=== PATIENT | male | born 1950 | race Caucasian/White ===

== ENCOUNTER 2016-08-22 11:26 | Day surgery (SDC) | payer OTHER ==
[~2016-08-22 11:26] MED LIST: IOPAMIDOL (ISOVUE-300) 150 ML BTL IV ONE; ceFAZolin 2 GM/DEXTROSE 100 ML IV ONE
[2016-08-22] MEDS ORDERED: LIDOCAINE 1% 5 ML SDV ONE (11:47)
[2016-08-22] MEDS ORDERED: CEFAZOLIN 2 GM/DEXTROSE/100 ML BAG IV ONE (12:16)
[2016-08-22 12:22] LABS: INR 1.98 (0.83-1.16); PROTIME(PATIENT) 22.6 SEC (12.0-15.0)
[2016-08-22] MEDS ORDERED: MIDAZOLAM 2 MG/2 ML VIAL ONE (12:25)
[2016-08-22] MEDS ORDERED: DEXAMETHASONE 4 MG/ML VIAL ONE (12:35)
[2016-08-22] MEDS ORDERED: PROPOFOL 200 MG/20 ML VIAL ONE ×3 (12:35→13:14)
[2016-08-22] MEDS ORDERED: ONDANSETRON 4 MG/2 ML VIAL ONE (12:35)
[2016-08-22] MEDS ORDERED: fentaNYL 250 MCG/5 ML INJ ONE (12:35)
[2016-08-22] MEDS ORDERED: ROCURONIUM 50 MG/5 ML VIAL ONE (12:35)
--- NOTE | 2016-08-22 15:10 | DX ---
Fluoroscopy, Greater Than One Hour Indication: Right ureteroscopy with laser treatment. Fluoroscopy time: 0.1 minutes. Dose: 0.5 mGy. Findings: A single spot fluoroscopic image was obtained showing a ureteral stent on the right side as suming the patient is in the supine position. Impression: Fluoroscopy provided for ureteroscopy and stent placement.
--- NOTE | 2016-08-22 20:47 | GOP ---
[f rep st] OPERATIVE REPORT DATE OF OPERATION: 08/22/2016 SURGEON: Kartik Simental MD PREOPERATIVE DIAGNOSIS: Right ureteral calculus. POSTOPERATIVE DIAGNOSIS: Right ureteral calculus. PROCEDURE PERFORMED: Right ureteroscopy with holmium laser lithotripsy, basket extraction of stones, and insertion of indwelling ureteral stent. FINDINGS: INDICATIONS: The patient is a 66-year-old male with a 7.5 mm right ureterovesical junction stone. B ecause of intermittent pain and failure to progress, options were discussed. He elected to undergo s tone removal. DESCRIPTION OF PROCEDURE: After informed consent and with a general LMA anesthesia, the patient was placed in the lithotomy position with his genitalia sterilely prepped and draped. Cystoscopy was car ried out and a Sensor guidewire was passed into the right renal pelvis under fluoroscopic control. T he semirigid ureteroscope was advanced to the stone located in the distal ureter. A 200 micron holmi um laser fiber at 6.4 dwyer of energy was used to fragment the stone. These fragments were removed w ith a nitinol basket. The scope was then advanced more proximally. Visual and contrast injection in to the ureter yielded no additional stone fragments. The scope was then removed and a 6-Malian Multi -Link ureteral stent positioned. A withdrawal string was left in place. The patient was awakened, transferred to the recovery room in stable condition. There were no intrao perative complications. Fragments were left in his bladder and he will urinate into a screen in PACU . There was essentially no blood loss. /[id number]/MODL
== END 2016-08-22 15:15 | disposition home or self-care (01) ==
LOC: FSGY 11:26
PROVIDERS: ATTEND Urology
DX: N20.1 Calculus of ureter (principal); N28.89 Other specified disorders of kidney and ureter
CPT/HCPCS: 52356; 76001; C1769; C2625; J0690; J1100; J2250; J2405; J2704; J3010; Q9967

== ENCOUNTER → 2016-09-29 | Outpatient (CLI) | payer OTHER ==
--- NOTE | 2016-09-29 09:45 | US ---
Complete Retroperitoneal Ultrasound History: Post ureteral stent removal. Comparison: CT abdomen and pelvis August 04, 2016. Findings: The right kidney measures 12.4 x 6.5 x 6.2 cm and the left kidney measures 10.1 x 5.1 x 5.0 cm. A 2.9 x 2.5 cm simple cyst in the posterior right kidney is not significantly changed. An 8 mm n onobstructing stone is noted in the mid/inferior right kidney. There is no hydronephrosis. Multiple n onobstructing stones seen on CT are poorly visualized on ultrasound. The bladder is normal. Bilateral ureteral jets are present. Prevoid bladder volume is 194 mL. Postv oid bladder volume is 69 mL. Impression: 1. No hydronephrosis. 2. Limited assessment of bilateral nephrolithiasis seen better on recent CT. 3. Simple right renal cyst. 4. Postvoid residual of 69 mL.
== END ==
LOC: CIMAGING 08:06
PROVIDERS: ATTEND Urology
DX: N28.1 Cyst of kidney, acquired (principal); N20.0 Calculus of kidney; Z98.890 Other specified postprocedural states
CPT/HCPCS: 76770-PO

== ENCOUNTER → 2016-11-05 | Outpatient (CLI) | payer OTHER | LOC: BMCIMAGING 15:08 | PROVIDERS: ATTEND Internal Medicine | DX: M47.22 Other spondylosis with radiculopathy, cervical region (principal) ==

== ENCOUNTER → 2016-11-11 | Outpatient (CLI) | payer OTHER | LOC: FIMAGING 07:07 | PROVIDERS: ATTEND Internal Medicine | DX: M50.31 Other cervical disc degeneration, high cervical region (principal); M47.892 Other spondylosis, cervical region; M48.02 Spinal stenosis, cervical region; M46.92 Unspecified inflammatory spondylopathy, cervical region ==

== ENCOUNTER → 2017-03-12 | Outpatient (CLI) | payer OTHER ==
[2017-03-12 11:33] LABS: WBC, SYNOVIAL FLUID 632 /mm3 (0-150)
[2017-03-12 14:16] LABS: CRYSTALS, SYNOVIAL FLUID NONE SEEN (NONE SEEN)
== END ==
LOC: FIMAGING 08:15
PROVIDERS: ATTEND Orthopaedic Surgery
PROC: 0S9C3ZX Drainage of Right Knee Joint, Percutaneous Approach, Diagnostic (ICD-10-PCS; principal; 2017-03-12)

== ENCOUNTER → 2017-08-03 | Outpatient (CLI) | payer OTHER | LOC: CIMAGING 08:57 | PROVIDERS: ATTEND Orthopaedic Surgery | DX: R22.41 Localized swelling, mass and lump, right lower limb (principal); M25.561 Pain in right knee; Z98.890 Other specified postprocedural states ==

== ENCOUNTER 2018-07-16 05:49 | Day surgery (SDC) | payer OTHER ==
[2018-07-16] MEDS ORDERED: ceFAZolin 2 GM/DEXTROSE 100 ML IV ONE (06:06)
[2018-07-16] MEDS ORDERED: LR 1,000 ML IV ONE (06:07)
[2018-07-16] MEDS ORDERED: LIDOCAINE 1% 2 ML INJ ID PRN (06:07)
[2018-07-16] MEDS ORDERED: fentaNYL 100 MCG/2 ML INJ IVP PRN (06:20)
[2018-07-16] MEDS ORDERED: HYDROmorphONE/DILAUDID 2 MG/ML INJ IVP PRN (06:20)
[2018-07-16] MEDS ORDERED: ONDANSETRON 4 MG/2 ML VIAL IVP PRN (06:20)
[2018-07-16] MEDS ORDERED: PROMETHAZINE HCL 25 MG/ML INJ IVP PRN (06:20)
[2018-07-16] MEDS ORDERED: MEPERIDINE 25 MG/0.5 ML AMP IVP PRN (06:20)
[2018-07-16] MEDS ORDERED: NALOXONE HCL 0.4 MG/ML INJ IVP PRN (06:20)
[2018-07-16] MEDS ORDERED: PHENYLEPHRINE HCL 100 MCG/ML SYR IVP PRN (06:20)
[2018-07-16] MEDS ORDERED: METOCLOPRAMIDE 10 MG/2 ML VIAL IVP PRN (06:20)
[2018-07-16] MEDS ORDERED: LIDOCAINE 2% 5 ML SDV ONE (06:33)
[2018-07-16] MEDS ORDERED: DEXAMETHASONE 4 MG/ML VIAL ONE (06:33)
[2018-07-16] MEDS ORDERED: ONDANSETRON 4 MG/2 ML VIAL ONE (06:33)
[2018-07-16] MEDS ORDERED: PROPOFOL 200 MG/20 ML VIAL ONE (06:34)
[2018-07-16] MEDS ORDERED: fentaNYL 250 MCG/5 ML INJ ONE (06:34)
[2018-07-16] MEDS ORDERED: MIDAZOLAM 2 MG/2 ML VIAL IVP ONE (06:37)
[2018-07-16 06:58] LABS: INR 1.78 (0.83-1.16); PROTIME(PATIENT) 20.8 SEC (12.0-15.0)
[2018-07-16] MEDS ORDERED: BUPIVACAINE 0.5% 30 ML SDV ONE (06:58)
--- NOTE | 2018-07-16 07:07 | PDHPUP ---
History & Physical Update H&P update statement: This history and physical update is based on an assessment of the patient which was completed after admission or registration (within 24 hours), but prior to the surgery/procedure. H&P update: H&P reviewed & patient examined, no change in patient's condition since H&P completed
[2018-07-16] MEDS ORDERED: ROPIVACAINE HCL 150 MG/30 ML INJ ONE (07:24)
--- NOTE | 2018-07-16 07:38 | PDANEPAE ---
ANE Past Medical History - Cardiovascular History Hx Hypertension: No Hx Arrhythmias: Yes Hx Chest Pain: No Hx Coronary Artery / Peripheral Vascular Disease: No Hx CHF / Valvular Disease: No Hx Palpitations: No Cardiovascular History Comment: "PVC's" Sacha Valdez (flexo operator). Hx of DVT's, one in each calf after knee surgery and was on a long airplane flight, 2009 - Pulmonary History Hx COPD: No Hx Asthma/Reactive Airway Disease: No Hx Recent Upper Respiratory Infection: No Hx Oxygen in Use at Home: No Hx Sleep Apnea: No Sleep Apnea Screening Result - Last Documented: Negative - Neurologic History Hx Cerebrovascular Accident: No Hx Seizures: No Hx Dementia: No - Endocrine History Hx Diabetes: No - Renal History Hx Renal Disorders: Yes Renal History Comment: kidney stones, stents placed - Liver History Hx Hepatic Disorders: No - Neurological & Psychiatric Hx Hx Neurological and Psychiatric Disorders: No - Cancer History Hx Cancer: No - Congenital Disorder History Hx Congenital Disorders: No - GI History Hx Gastrointestinal Disorders: No - Other Health History Other Health History: wears glasses. early stage macular degeneration. easy brusing r/t warfarin. osteoarthritis - Chronic Pain History Chronic Pain: Yes (right knee) - Surgical History Prior Surgeries: right ureteroscopy w/stent placement, 08/2016. Right quad tendon repair. LEFT KNEECAP RE-ALIGNMENT 2014. RIGHT KNEECAP RE-ALIGNMENT 2014 AND 04/2015. Bilateral TKA's (2008) 10 months apart. R shoulder arthroscopy (03/14/14). L shoulder reconstruction (07/1967). 6 knee scopes in total. hernia repair (2010) ANE Review of Systems Review of Systems: - Exercise capacity METS (RN): 5 METS ANE Patient History - Allergies Allergies/Adverse Reactions: No Known Allergies Allergy (Verified 07/14/18 14:18) - Home Medications Home Medications: Cholecalciferol Vit D3 [Vitamin D3 2000 units] 04/09/15 [Last Taken 07/13/18] Metoprolol Succinate Xr [Toprol Xl 50 mg (*)] 04/09/15 [Last Taken 07/15/18] Multivitamins [Multivitamin (*)] 04/09/15 [Last Taken 07/13/18] Ibuprofen [Motrin (*)] PRN 05/14/15 [Last Taken 07/15/18] Warfarin Sodium [Coumadin 4MG (*)] 05/14/15 [Last Taken 07/13/18 18:00] C/E/Zn/Cu/OM3/DHA/EPA/LUT/ZEAX [Preservision Areds 2 Softgel] 07/14/18 [Last Taken 07/13/18] Calcium Citrate 07/14/18 [Last Taken 07/13/18] Chlorthalidone 07/14/18 [Last Taken 07/13/18] Potassium Citrate 07/14/18 [Last Taken 07/13/18] - NPO status NPO Since - Liquids (Date): 07/15/18 NPO Since - Liquids (Time): 20:00 NPO Since - Solids (Date): 07/15/18 NPO Since - Solids (Time): 20:00 - Smoking Hx Smoking Status: Never smoked - Family Anes Hx Family Hx Anesthesia Complications: none ANE Labs/Vital Signs - Vital Signs Blood Pressure: 113/73 Heart Rate: 71 Respiratory Rate: 16 O2 Sat (%): 93 Height: 190.5 cm Weight: 99.79 kg ANE Physical Exam - Airway Neck exam: FROM Mallampati Score: Class 2 Mouth exam: normal dental/mouth exam - Pulmonary Pulmonary: no respiratory distress, no rales or rhonchi, clear to auscultation - Cardiovascular Cardiovascular: regular rate and rhythym, no murmur, rub, or gallop - ASA Status ASA Status: II ANE Anesthesia Plan Anesthesia Plan: general endotracheal anesthesia Regional Anesthesia: single shot NB
--- NOTE | 2018-07-16 09:16 | POSTOPPROG ---
Post Op Note Date of Operation: 07/16/18 Surgeon: Caleb Ramos Stick Roller: Kathleen Anesthesia: GET(General Endotracheal) Pre-op Diagnosis: R ankle instability, peroenarl tear Post-op Diagnosis: same Indication: above Procedure: R ankle scope, katina richardson, peroneal transfer Inf/Abcess present in the surg proc area at time of surgery?: No EBL: 50-100
[2018-07-16 11:24] VITALS: BP 120/78
--- NOTE | 2018-07-16 13:51 | POSTANESTH ---
Post Anesthetic Evaluation Cardiovascular Status: Normal, Stable Respiratory Status: Normal, Stable Level of Consciousness/Mental Status: Can Participate in Eval Pain Control: Adequate, Prn Tx Ordered Nausea/Vomiting Control: Adequate, Prn Tx Ordered Complications Possibly Related to Anesthesia: None Noted
--- NOTE | 2018-07-16 14:08 | GOP ---
DATE OF OPERATION: SURGEON: Caleb Ramos MD DAT[employer] SOFTWARE CONSULTANT: Daniel Wang SA. ANESTHESIA: General. PREOPERATIVE DIAGNOSIS: Right ankle peroneal tendon tears, right ankle instability, right ankle impi ngement, right ankle varus heel. POSTOPERATIVE DIAGNOSIS: Right ankle peroneal tendon tears, right ankle instability, right ankle imp ingement, right ankle varus heel. PROCEDURE PERFORMED: 1. Right ankle arthroscopy with extensive debridement, including anterior decompression of bone. 2. Right ankle peroneal debridement and tendon transfer of peroneus brevis to longus. 3. Right ankle Benson procedure. 4. Right lateral ankle ligament reconstruction of the calcaneofibular ligament. FINDINGS: SPECIMENS: None. ESTIMATED BLOOD LOSS: 5 mL. INDICATIONS: A male who has had a long history of ankle pain, peroneal tendinitis, and varus instabi lity. I had seen him initially, and I talked to him about surgery for his torn peroneal tendons and instability and malalignment. He treated conservatively and came back a couple years later with wors e symptoms. He felt that he still had similar pathology that had worsened, and we discussed surgical intervention. We discussed risks of need for additional procedures on the tendons, risk of having a complete tendon tear, arthritis, continued pain, nerve injury and further instability, nonunion, mal union, and need for further surgeries, and he elected proceed. Informed consent was obtained after all questions answered marked. DESCRIPTION OF PROCEDURE: He was marked preoperatively. He was taken to the operating suite and archana rilely prepped and draped in normal fashion. Time-out was performed, verifying site, side, and locat ion in agreement with the team. I established a medial portal and a lateral working portal on the ankle with skin incisions only. He had significant synovitis which was debrided on the anterior medial and lateral gutters. I did a son ny decompression with a bur for his impingement. He also had significant articular cartilage wear in multiple locations on his talus and tibia. This was worse than his x-rays would have indicated. Ho wever, he did have a congruent ankle. The scope was removed. I made an incision over the peroneal t endons. I dissected down to this. Upon entering the peroneal space, the peroneus brevis had obvious ly completely ruptured at some point. It adhesed down to the longus in multiple locations but was no longer functioning. I removed this entire section of degenerative bad tendon. I was able to salvag e the proximal stump of the peroneus brevis and transfer this to the longus tendon to help with the m otor function of this. The longus tendon was also repaired with a minor longitudinal tear. I isolat ed the point of the Benson with the elevator on the calcaneus and cut this and then removed a wedge of bone and displaced this laterally, and with the wedge I placed guide pins across this, placed Arthre x 7-hole headless compression screws, completing the Benson and helping his alignment. I then isolate d the point of calcaneus for the CFL. Placed an internal brace in this. I then used the suture and this to bring the calcaneofibular ligament to the bone, tightening his varus instability. I then mansoor lula the internal brace over this into the fibula, being careful not overtighten this. I laid the ten don back on this and then closed the retinaculum. He was irrigated, closed with 0 Vicryl, 2-0 Vicryl , 3-0 Quill, and Dermabond. He was taken to PACU in stable condition. We will see how he does with this. Given these more extensive arthritic changes in the ankle he may require an ankle procedure weathers ch as fusion or total ankle at some point. IMPLANTS: Two Arthrex 7-hole headless compression screws and internal brace. COMPLICATIONS: None. DRAINS: None. CONDITION: Stable. /[id number]/MODL
== END 2018-07-16 11:20 | disposition home or self-care (01) ==
LOC: FSGY 05:49
PROVIDERS: ATTEND Orthopaedic Surgery
DX: M25.371 Other instability, right ankle (principal); M66.871 Spontaneous rupture of other tendons, right ankle and foot; M76.71 Peroneal tendinitis, right leg; M21.6X1 Other acquired deformities of right foot; M65.871 Other synovitis and tenosynovitis, right ankle and foot; M19.071 Primary osteoarthritis, right ankle and foot; G89.29 Other chronic pain; Z86.718 Personal history of other venous thrombosis and embolism; Z87.442 Personal history of urinary calculi; Z82.49 Family history of ischemic heart disease and other diseases of the circulatory system; Z96.651 Presence of right artificial knee joint; Z79.01 Long term (current) use of anticoagulants
CPT/HCPCS: C1713; J0690; J1100; J2250; J2405; J2704; J2795; J3010

== ENCOUNTER → 2019-01-14 | Outpatient (CLI) | payer OTHER | LOC: EMCIMAGING 15:43 ==